=== PATIENT | female | born 1945 | race Caucasian/White ===

== ENCOUNTER 2018-02-15 18:31 | Inpatient (IN) | payer MEDICARE, OTHER ==
[2018-02-15] MEDS ORDERED: DEXAMETHASONE 10 MG/ML 1 ML INJ IV (19:22)
[2018-02-15] MEDS: ALBUTEROL 0.5% (NEB) 2.5 MG/0.5 ML AMP INH ×2 (19:44→21:02)
[2018-02-15] MEDS: IPRATROPIUM (NEB) 0.5 MG/2.5 ML AMP NEB (19:44)
[2018-02-15] MEDS: MAGNESIUM SULFATE 2 GM/50 ML 50 ML IVPB (20:03)
[2018-02-15 20:05] LABS: ADD MAN DIFF? NO
[2018-02-15 20:11] LABS: BASOPHIL # 0.1 10^3/ul (0.0-0.1); BASOPHILS % 0.4 % (0.0-2.0); EOSINOPHILS # 0.2 10^3/ul (0.0-0.5); EOSINOPHILS % 1.6 % (0.0-7.0); HEMATOCRIT 41.1 % (37.0-47.0); HEMOGLOBIN 13.2 g/dl (12.0-16.0); LYMPHOCYTES # 2.4 10^3/ul (0.8-2.9); LYMPHOCYTES % 21.1 % (15.0-51.0); MEAN CORPUSCULAR HGB CONC 32.1 g/dl (32.0-37.0); MEAN CORPUSCULAR VOLUME 96.5 fl (82.0-101.0); MEAN PLATELET VOLUME 8.6 fl (7.4-10.4); MONOCYTE # 1.2 10^3/ul (0.3-0.9); MONOCYTES % 9.9 % (0.0-11.0); NEUTROPHIL # 7.6 10^3/ul (1.6-7.5); NEUTROPHILS % 65.4 % (39.0-77.0); PLATELET COUNT 483 10^3/UL (140-415); RED BLOOD COUNT 4.26 10^6/ul (4.20-5.40); RED CELL DISTRIBUTION WIDTH 13.6 % (11.5-14.5)
[2018-02-15 20:11] LABS: WHITE BLOOD COUNT 11.6 10^3/ul (4.8-10.8)
[2018-02-15 20:28] LABS: ANION GAP 5 (5-13); BLOOD UREA NITROGEN 16 mg/dl (7-20); CALCIUM 8.5 mg/dl (8.4-10.2); CARBON DIOXIDE 39 mmol/L (21-31); CHLORIDE 99 mmol/L (97-110); CREATININE 0.63 mg/dl (0.44-1.00); GLUCOSE 145 mg/dl (70-220); POTASSIUM 3.6 mmol/L (3.5-5.1); SODIUM 143 mmol/L (135-144)
[2018-02-15] MEDS: METHYLPREDNISOLONE 125 MG INJ IV (20:33)
[2018-02-15 20:37] LABS: B-TYPE NATRIURETIC PEPTIDE 154 PG/ML (0-125)
[2018-02-15 20:41] LABS: TROPONIN-I < 0.012 ng/ml (0.000-0.120)
[2018-02-15 20:48] LABS: AADO2 Arterial 0.9 mmHg (7.0-24.0); Allen Test ACCEPTAB; Arterial Base Excess 11.1 mmol/L (-3.0-3); Arterial Blood Gas Oxygen Sat 91.4 mmHG (95.0-100.0); Arterial COHb 0.7 % (0.0-3.0); Arterial Fraction of Oxyhgb 90.6 % (93.0-99.0); Arterial HCO3 39.4 mmol/L (22.0-26.0); Arterial MetHb 0.2 % (0.0-1.5); Arterial Total Hemglobin 13.7 g/dl (12.0-18.0); Arterial pCO2 70.1 mmhg (35-45); MODE ROOM AIR; Site Right Radial
[2018-02-15] MEDS: IPRATROPIUM (NEB) 0.5 MG/2.5 ML AMP INH (21:02)
[2018-02-15] MEDS: CEFTRIAXONE 1 GM/50 ML (PMX) 50 ML IVPB (21:07)
[2018-02-15] MEDS ORDERED: NACL 0.9% 3 ML SYG IV (21:30)
[2018-02-15] MEDS ORDERED: LEVALBUTEROL (NEB) 1.25 MG/0.5 ML AMP HHN (21:30)
[2018-02-15] MEDS ORDERED: ONDANSETRON 4 MG INJ IV ×2 (21:30)
[2018-02-15] MEDS ORDERED: ACETAMINOPHEN 325 MG TAB PO ×2 (21:30)
[2018-02-15] MEDS: AZITHROMYCIN 500MG/NS (PMX) 250 ML IV (21:56)
[2018-02-16] MEDS ORDERED: ALBUTEROL/IPRATROPIUM (NEB) 3 ML AMP HHN (01:00)
[2018-02-16] MEDS: LEVALBUTEROL (NEB) 1.25 MG/0.5 ML AMP HHN ×4 (01:48→13:03)
[2018-02-16] MEDS: IPRATROPIUM (NEB) 0.5 MG/2.5 ML AMP HHN ×4 (01:48→13:04)
[2018-02-16] MEDS ORDERED: LEVALBUTEROL (NEB) 1.25 MG/0.5 ML AMP HHN (02:00)
[2018-02-16] MEDS ORDERED: IPRATROPIUM (NEB) 0.5 MG/2.5 ML AMP HHN (02:00)
[2018-02-16] MEDS: PANTOPRAZOLE (EC) 40 MG TAB PO (05:34)
[2018-02-16 06:25] LABS: ADD MAN DIFF? NO
[2018-02-16 06:28] LABS: WHITE BLOOD COUNT 12.4 10^3/ul (4.8-10.8)
[2018-02-16 06:28] LABS: ABNORMAL IP MESSAGE 1; BASOPHILS % 0.2 % (0.0-2.0); HEMATOCRIT 39.1 % (37.0-47.0); LYMPHOCYTES # 0.6 10^3/ul (0.8-2.9); LYMPHOCYTES % 4.5 % (15.0-51.0); MEAN CORPUSCULAR HEMOGLOBIN 30.1 pg (29.0-33.0); MEAN CORPUSCULAR HGB CONC 30.7 g/dl (32.0-37.0); MEAN PLATELET VOLUME 8.7 fl (7.4-10.4); MONOCYTE # 0.1 10^3/ul (0.3-0.9); MONOCYTES % 0.8 % (0.0-11.0); NEUTROPHIL # 11.5 10^3/ul (1.6-7.5); NEUTROPHILS % 92.5 % (39.0-77.0); PLATELET COUNT 450 10^3/UL (140-415); RED BLOOD COUNT 3.99 10^6/ul (4.20-5.40); RED CELL DISTRIBUTION WIDTH 13.8 % (11.5-14.5)
[2018-02-16 06:40] LABS: POSITIVE DIFF @See below
[2018-02-16 06:49] LABS: ALANINE AMINOTRANSFERASE 27 IU/L (13-69); ALBUMIN 3.3 g/dl (3.3-4.9); ALKALINE PHOSPHATASE 117 IU/L (42-121); ANION GAP 9 (5-13); ASPARTATE AMINO TRANSFERASE 25 IU/L (15-46); BILIRUBIN,INDIRECT 0.1 mg/dl (0-1.1); BILIRUBIN,TOTAL 0.1 mg/dl (0.2-1.3); BLOOD UREA NITROGEN 14 mg/dl (7-20); CALCIUM 7.8 mg/dl (8.4-10.2); CARBON DIOXIDE 36 mmol/L (21-31); CHLORIDE 100 mmol/L (97-110); CHOL/HDL RATIO 2.8 RATIO; CHOLESTEROL 127 mg/dl (100-200); CREATININE 0.45 mg/dl (0.44-1.00); GLUCOSE 178 mg/dl (70-220); HDL CHOLESTEROL 44 mg/dl (33-92); LDL CHOLESTEROL,CALCULATED 68 mg/dl; MAGNESIUM 2.6 mg/dl (1.7-2.5); POTASSIUM 4.1 mmol/L (3.5-5.1); SODIUM 145 mmol/L (135-144); TOTAL PROTEIN 6.6 g/dl (6.1-8.1); TRIGLYCERIDES 73 mg/dl (0-149)
[2018-02-16 06:56] LABS: HEMOGLOBIN A1C 6.2 % (0-5.9)
[2018-02-16 07:53] LABS: THYROID STIMULATING HORMONE 0.897 MIU/L (0.465-4.680)
[2018-02-16] MEDS: METHYLPREDNISOLONE 40 MG INJ IV (08:45)
[2018-02-16] MEDS: BENAZEPRIL 5 MG TAB PO (10:53)
[2018-02-16] MEDS: ENOXAPARIN 40 MG/0.4 ML SYG SC (10:57)
[2018-02-16] MEDS: FLUTICASONE/VILANTEROL 100-25 INH (12:28)
[2018-02-16] MEDS ORDERED: CEFTRIAXONE 1 GM/50 ML (PMX) 50 ML IVPB (18:00)
[2018-02-16] MEDS ORDERED: AZITHROMYCIN 500MG/NS (PMX) 250 ML IVPB (18:00)
[2018-02-16] MEDS ORDERED: MONTELUKAST 10 MG TAB PO (21:00)
== END 2018-02-16 14:50 | disposition home or self-care (01) | DRG 202 ==
LOC: FTE 18:31 → TEL 21:02
PROC: 3E0F7GC Introduction of Other Therapeutic Substance into Respiratory Tract, Via Natural or Artificial Opening (ICD-10-PCS; principal; 2018-02-15)
DX: J45.901 Unspecified asthma with (acute) exacerbation (principal); J96.90 Respiratory failure, unspecified, unspecified whether with hypoxia or hypercapnia; J18.9 Pneumonia, unspecified organism; I10 Essential (primary) hypertension; R73.03 Prediabetes; E78.5 Hyperlipidemia, unspecified
CPT/HCPCS: 36600; 71045; 80048; 80053; 80061; 82803; 83036; 83735; 83880; 84443; 84484; 85025; 87040; 93005; 94640; 94644; 94645; 94664; 96365; 96375; 99291-25